=== PATIENT | female | born 1990 | race African-American/Black ===

== ENCOUNTER 2016-09-29 15:41 | Emergency (ER) | payer SELFPAY ==
[~2016-09-29] VITALS: Ht 167.6 cm; Wt 72.1 kg
[~2016-09-29 15:41] MED LIST: CIPRO500 MG PO; IBUPROFEN800 MG PO; KEFLEX500 MG PO; PHENAZOPYRIDIN100 MG PO; VICODIN 5-5001 EACH PO
[2016-09-29] MEDS ORDERED: Pyridoxine 50mg tab ORAL SCH (16:00)
[2016-09-29 17:27] LABS: APPEARANCE,URINE CLEAR; KETONES,URINE 4+ (NEGATIVE); LEUKOCYTE ESTERASE ,URINE 1+ (NEGATIVE); NITRITE,URINE NEGATIVE (NEGATIVE); PH,URINE 8 (4.5-8.0); PROTEIN,URINE NEGATIVE (NEGATIVE); UROBILINOGEN,URINE NORMAL MG/DL (0.0-1.0)
[2016-09-29 17:33] LABS: BACTERIA,URINE FEW /HPF; MUCUS,URINE FEW /LPF (NONE/OCC); RBC,URINE 0-2 /HPF (0 - 2); SQUAMOUS EPITHELIAL CELL,UR FEW /LPF (NONE/OCC)
[2016-09-29 17:43] LABS: MEAN CORPUSCULAR HEMOGLOBIN 34.9 PG (27.0-31.0); MEAN CORPUSCULAR HGB CONC 36.4 G/DL (32.0-36.0); MEAN CORPUSCULAR VOLUME 96 FL (80-99); MEAN PLATELET VOLUME 6.4 FL (6.5-10.1); PLATELET COUNT 225 K/UL (150-450); RED BLOOD COUNT 4.58 M/UL (4.20-5.40); RED CELL DISTRIBUTION WIDTH 10.8 % (11.6-14.8); WHITE BLOOD COUNT 15.3 K/UL (4.8-10.8)
[2016-09-29 17:56] LABS: ALANINE AMINOTRANSFERASE 12 U/L (3-33); ALBUMIN/GLOBULIN RATIO 1.7 (1.0-2.7); ANION GAP 20 (5-15); ASPARTATE AMINO TRANSFERASE 17 U/L (5-40); CALCIUM 9.9 mg/dL (8.6-10.2); CARBON DIOXIDE 22 mEQ/L (20-30); CHLORIDE 98 mEQ/L (98-107); CREATININE 0.8 mg/dL (0.5-0.9); GLOMERULAR FILTRATION RATE > 60 mL/min (>60); HEMOLYSIS 2; POTASSIUM 4.1 mEQ/L (3.4-4.9); SODIUM 140 mEQ/L (135-145); TOTAL PROTEIN 7.9 g/dL (6.6-8.7)
[2016-09-29 18:22] LABS: BAND NEUTROPHILS % (MANUAL) 2 % (0-8); BASOPHILS % (MANUAL) 1 % (0-2); EOSINOPHILS % (MANUAL) 0 % (0-3); LYMPHOCYTES % (MANUAL) 7 % (20-45); NEUTROPHILS % (MANUAL) 84 % (45-75); PLATELET ESTIMATE ADEQUATE; PLATELET MORPHOLOGY NORMAL; TOTAL CELLS COUNTED 100
[2016-09-29 19:05] VITALS: BP 91/55
[2016-09-29] MEDS ORDERED: ZOFRAN4 M3 ORAL (19:07)
[2016-09-29 19:15] VITALS: BP 91/55
--- NOTE | 2016-09-29 19:40 | Emergency Room Report ---
History of Present Illness General Chief Complaint: Nausea, Vomiting, and Diarrhea Source: Patient Present Illness HPI The patient is a 26-year-old female presenting for nausea and vomiting during first trimester of . The 2 most recent pregnancies ended by choice via D&C. The patient states that she is approximately 6-7 weeks gestation by dates. She states that she has a followup appointment for ultrasound in 2 weeks. She states she developed nausea with vomiting this morning and has had 8 episodes of vomiting. The patient admits to abdominal pain only when vomiting and is described as a 5/10 dull ache to the mid upper abdomen. pain does not radiate. She denies any other symptoms including F, chills, العلي, dizziness, swelling, CP, SOB, rash, dysuria, hematuria, abdominal cramping Allergies: Coded Allergies: No Known Allergies (Unverified , 04/25/12) Patient History Past Medical History: see triage record Pertinent Family History: none Last Menstrual Period: 7-8 weeks Now: Yes : 2 Para: 1 Reviewed Nursing Documentation: PMH: Agreed, PSxH: Agreed Nursing Documentation-PMH Past Medical History: No Stated History Review of Systems All Other Systems: negative except mentioned in HPI Physical Exam Vital Signs Date Time Temp Pulse Resp B/P Pulse Ox O2 Delivery O2 Flow Rate FiO2 20/17 15:50 98.1 88 16 126/85 98 Room Air Sp02 EP Interpretation: reviewed, normal General Appearance: no apparent distress, alert, GCS 15, non-toxic Head: normocephalic, atraumatic Eyes: bilateral eye PERRL, bilateral eye normal inspection ENT: hearing grossly normal, normal pharynx, no angioedema, normal voice Neck: full range of motion, supple/symm/no masses Respiratory: chest non-tender, lungs clear, normal breath sounds, speaking full sentences Gastrointestinal: normal bowel sounds, non tender, soft, non-distended, no guarding, no rebound Genitourinary: normal inspection, no CVA tenderness Musculoskeletal: back normal, gait/station normal, normal range of motion, non- tender, calf tenderness Neurologic: alert, oriented x3, responsive, motor strength/tone normal, sensory intact, normal gait, speech normal Psychiatric: judgement/insight normal, memory normal, mood/affect normal, no suicidal/homicidal ideation Skin: normal color, no rash, warm/dry, well hydrated Lymphatic: no adenopathy Medical Decision Making PA Attestation Dr. fierro is my supervising physician. Patient management was discussed with my supervising physician Diagnostic Impression: Primary Impression: Nausea/vomiting in ER Course The patient is a 26-year-old female presenting for nausea and vomiting during first trimester of . Differential diagnoses considered include but not limited to Hyperemesis gravidarum, Early , threatened , incomplete , ectopic PE: Vitals WNL. NAD. Abdomen: Normal appearance. Non distended. No ecchymosis. Normal BS. Non TTP. No McBurney point tenderness. No guarding. No CVA tenderness Lab work unremarkable. The patient is given IV fluids and pyridoxine. She initially states that she is feeling better but hasn't vomited. She is given IV Zofran and feels much better. No vomiting since administration. The patient be discharged home and will followup with OB. She is given a prescription for Zofran. ER precautions given Laboratory Tests Test 09/29/16 16:55 09/29/16 17:00 White Blood Count 15.3 K/UL (4.8-10.8) H Red Blood Count 4.58 M/UL (4.20-5.40) Hemoglobin 16.0 G/DL (12.0-16.0) Hematocrit 44.0 % (37.0-47.0) Mean Corpuscular Volume 96 FL (80-99) Mean Corpuscular Hemoglobin 34.9 PG (27.0-31.0) H Mean Corpuscular Hemoglobin Concent 36.4 G/DL (32.0-36.0) H Red Cell Distribution Width 10.8 % (11.6-14.8) L Platelet Count 225 K/UL (150-450) Mean Platelet Volume 6.4 FL (6.5-10.1) L Neutrophils (%) (Auto) % (45.0-75.0) Lymphocytes (%) (Auto) % (20.0-45.0) Monocytes (%) (Auto) % (1.0-10.0) Eosinophils (%) (Auto) % (0.0-3.0) Basophils (%) (Auto) % (0.0-2.0) Differential Total Cells Counted 100 Neutrophils % (Manual) 84 % (45-75) H Lymphocytes % (Manual) 7 % (20-45) L Monocytes % (Manual) 6 % (1-10) Eosinophils % (Manual) 0 % (0-3) Basophils % (Manual) 1 % (0-2) Band Neutrophils 2 % (0-8) Platelet Estimate Adequate Platelet Morphology Normal Red Blood Cell Morphology Normal Sodium Level 140 mEQ/L (135-145) Potassium Level 4.1 mEQ/L (3.4-4.9) Chloride Level 98 mEQ/L (98-107) Carbon Dioxide Level 22 mEQ/L (20-30) Anion Gap 20 (5-15) H Blood Urea Nitrogen 6 mg/dL (7-23) L Creatinine 0.8 mg/dL (0.5-0.9) Estimate Glomerular Filtration Rate > 60 mL/min (>60) Glucose Level 102 mg/dL (74-106) Calcium Level 9.9 mg/dL (8.6-10.2) Total Bilirubin 0.7 mg/dL (0.0-1.2) Aspartate Amino Transferase (AST) 17 U/L (5-40) Alanine Aminotransferase (ALT) 12 U/L (3-33) Alkaline Phosphatase 51 U/L (35-104) Total Protein 7.9 g/dL (6.6-8.7) Albumin 5.0 g/dL (3.5-5.2) Globulin 2.9 g/dL Albumin/Globulin Ratio 1.7 (1.0-2.7) Human Chorionic Gonadotropin, Quant 97623 mIU/mL Urine Color Pale yellow Urine Appearance Clear Urine pH 8 (4.5-8.0) Urine Specific Elizabeth 1.015 (1.005-1.035) Urine Protein Negative (NEGATIVE) Urine Glucose (UA) Negative (NEGATIVE) Urine Ketones 4+ (NEGATIVE) H Urine Occult Blood Negative (NEGATIVE) Urine Nitrite Negative (NEGATIVE) Urine Bilirubin Negative (NEGATIVE) Urine Urobilinogen Normal MG/DL (0.0-1.0) Urine Leukocyte Esterase 1+ (NEGATIVE) H Urine RBC 0-2 /HPF (0 - 2) Urine WBC 2-4 /HPF (0 - 2) Urine Squamous Epithelial Cells Few /LPF (NONE/OCC) Urine Bacteria Few /HPF (NONE) Urine Mucus Few /LPF (NONE/OCC) H Lab Results Impression Unremarkable. b hCG consistent with dates. Last Vital Signs Date Time Temp Pulse Resp B/P Pulse Ox O2 Delivery O2 Flow Rate FiO2 09/29/16 19:05 99.2 92 18 91/55 100 Room Air Status: improved Disposition: HOME, SELF-CARE Condition: Improved Scripts Ondansetron* (ZOFRAN*) 4 Mg Tablet 4 MG ORAL Q6H Y for Nausea & Vomiting, #15 TAB Prov: ANNITA DRAPER 09/29/16 Patient Instructions: Morning Sickness, First Trimester of Additional Instructions: I discussed my findings with the patient. All questions and concerns have been answered. Treatment and medication compliance have been addressed. I advised the patient that they need to follow up with PMD in 3-5 days. Return to ED if symptoms worsen, new symptoms arise, or if needed for any reason. Patient verbalized understanding of discharge instructions. The patient will followup with OB as discussed ANNITA RDAPER September 29, 2016 19:40
== END 2016-09-29 19:15 | disposition home or self-care (01) ==
LOC: EMR 16:08
DX: R11.2 Nausea with vomiting, unspecified (principal); O26.91 Pregnancy related conditions, unspecified, first trimester; Z3A.01 Less than 8 weeks gestation of pregnancy
CPT/HCPCS: 36415; 80053; 81001; 84702; 85007; 85025; 96374; 96375; 99284; J2405

== ENCOUNTER 2018-01-02 23:43 | Emergency (ER) | payer MEDICAID, OTHER ==
[~2018-01-02] VITALS: Ht 167.6 cm; Wt 79.4 kg
[~2018-01-02 23:43] MED LIST changes: +ZOFRAN4 M3 ORAL
[2018-01-03] MEDS ORDERED: LORazepam Inj 2mg/ml 1ml IV ONE
[2018-01-03 00:06] VITALS: BP 128/85
[2018-01-03 00:26] LABS: BASOPHILS % (AUTO) 0.9 % (0.0-2.0); HEMATOCRIT 43.5 % (37.0-47.0); HEMOGLOBIN 15.2 G/DL (12.0-16.0); LYMPHOCYTES % (AUTO) 10.9 % (20.0-45.0); MEAN CORPUSCULAR VOLUME 89 FL (80-99); NEUTROPHILS % (AUTO) 84.2 % (45.0-75.0); PLATELET COUNT 262 K/UL (150-450); RED BLOOD COUNT 4.86 M/UL (4.20-5.40); RED CELL DISTRIBUTION WIDTH 10.3 % (11.6-14.8); WHITE BLOOD COUNT 13.4 K/UL (4.8-10.8)
--- NOTE | 2018-01-03 00:27 | Emergency Room Report ---
History of Present Illness General Chief Complaint: Back Pain-No Injury Source: Patient Present Illness HPI Is a 27-year-old female with no significant past medical history. She presents with chief point shortness of breath and vomiting. She says she took an ecstasy pill 2 days ago. Since then she has been feeling nervous and complaining of shortness of breath. Also unable to keep anything down with vomiting. Now with upper back pain. No fever chills but no diarrhea. Never had this problem before. No wheezing. Nothing made it better. Nothing made it worse. She felt dizzy and numb all over. Allergies: Coded Allergies: No Known Allergies (Unverified , 04/25/12) Patient History Past Medical History: see triage record, old chart reviewed Past Surgical History: other Pertinent Family History: none Social History: Reports: drug use Last Menstrual Period: 12/30/17 Now: No Immunizations: other Reviewed Nursing Documentation: PMH: Agreed; PSxH: Agreed Nursing Documentation-PMH Past Medical History: No Stated History Review of Systems Eye: Denies: eye pain, blurred vision ENT: Denies: ear pain, nose congestion, throat swelling Respiratory: Reports: shortness of breath; Denies: cough Cardiovascular: Denies: chest pain, palpitations Gastrointestinal: Reports: nausea, vomiting; Denies: abdominal pain, diarrhea Musculoskeletal: Denies: back pain, joint pain Skin: Denies: rash Neurological: Denies: headache, numbness Endocrine: Denies: increased thirst, increased urine Hematologic/Lymphatic: Denies: easy bruising All Other Systems: negative except mentioned in HPI Physical Exam Vital Signs Date Time Temp Pulse Resp B/P (MAP) Pulse Ox O2 Delivery O2 Flow Rate FiO2 01/02/18 23:52 97.6 84 18 128/85 98 Room Air 97.5 vitals normal Sp02 EP Interpretation: reviewed, normal General Appearance: well appearing, no apparent distress, alert Head: normocephalic, atraumatic Eyes: bilateral eye PERRL, bilateral eye EOMI ENT: hearing grossly normal, normal pharynx Neck: full range of motion, supple, no meningismus Respiratory: chest non-tender, lungs clear, normal breath sounds Cardiovascular #1: regular rate, rhythm, no murmur Gastrointestinal: normal bowel sounds, non tender, no mass, no organomegaly, no bruit, non-distended Musculoskeletal: back normal, gait/station normal, normal range of motion Psychiatric: anxious Skin: warm/dry Medical Decision Making Diagnostic Impression: Primary Impression: Anxiety Additional Impressions: Substance abuse Back pain Qualified Codes: M54.6 - Pain in thoracic spine ER Course Patient presents with drug abuse anxiety. She sleeping comfortably now. Her pain is unremarkable. No evidence of infection. No evidence of cauda equina syndrome, spinal epidural abscess or neoplastic process. We'll discharge home. Lab Results Impression labs unremarkable Last Vital Signs Date Time Temp Pulse Resp B/P (MAP) Pulse Ox O2 Delivery O2 Flow Rate FiO2 01/02/18 23:52 97.6 84 18 128/85 98 Room Air 97.5 Status: improved Disposition: HOME, SELF-CARE Condition: Stable Scripts Ibuprofen* (MOTRIN*) 600 Mg Tablet 600 MG ORAL THREE TIMES A DAY, #30 TAB 0 Refills Prov: LOGAN ARIAS M.D. 01/03/18 Referrals: NON PHYSICIAN (PCP) Additional Instructions: Stop using drugs. Follow-up with your doctor in 7 days. Return if worse. Increase fluid. LOGAN ARIAS M.D. Jan 03, 2018 00:27
[2018-01-03 00:31] LABS: ANION GAP 17 mmol/L (5-15); BLOOD UREA NITROGEN 11 mg/dL (7-18); CALCIUM 9.3 MG/DL (8.5-10.1); CARBON DIOXIDE 20 MMOL/L (21-32); CHLORIDE 103 MMOL/L (98-107); CREATININE 1.1 MG/DL (0.55-1.30); POTASSIUM 3.1 MMOL/L (3.5-5.1); SODIUM 140 MMOL/L (136-145)
[2018-01-03] MEDS ORDERED: Ketorolac 30mg Inj IV ONE (00:45)
[2018-01-03] MEDS ORDERED: IBUPROFEN600 MG ORAL (01:34)
[2018-01-03 01:54] VITALS: BP 122/85
== END 2018-01-03 02:00 | disposition home or self-care (01) ==
LOC: EMR 01-03 00:12
DX: F41.9 Anxiety disorder, unspecified (principal); M54.6 Pain in thoracic spine; F16.10 Hallucinogen abuse, uncomplicated
CPT/HCPCS: 36415; 80048; 80307; 81025; 85025; 96361; 96374; 96375; 99285; J1885; J2405